=== PATIENT | male | born 1935 | race Hispanic/Latino ===

== ENCOUNTER 2016-08-05 18:31 | Emergency (ER) | payer MEDICARE, OTHER ==
[2016-08-05 18:48] VITALS: BMI 30.5
[2016-08-05 18:55] VITALS: TEMP 98.7
--- NOTE | 2016-08-05 19:02 | ED PDOC ---
Arrival/HPI - General Chief Complaint: ENT Problem Time Seen by Provider: 08/05/16 18:39 Historian: Patient, EMS - History of Present Illness Narrative History of Present Illness (Text): 08/05/16 18:51 80 y/o male, pmh including htn/bph/a.fibb, nkda, biba for nose bleeding started last night. Pt. has been on the coumadin alternate between 3mg and 4mg for the past few months which the PMD noticed it to be subtherapeutic, started 4mg po qd on 07/31/2016. Pt. has been having nasal congestion each morning when he wake up for the past 1 week, no facial pain, no dizziness, been blowing the nose , went to bent down and bear down which he noticed the lt. nostril to have bleeding and stopped. Pt. was sleeping last night and woke up this morning with the dry blood on the pillow. Pt. was having another episode of bleeding, called his pmd Dr. Fletcher which tell him to stop coumadin. Pt. is still having mild oozing from the lt. nostril, limited relief with the pressure. Pt.'s last tetanus under 7 years ago. Past Medical History - Provider Review Nursing Documentation Reviewed: Yes - Infectious Disease Hx of Infectious Diseases: None - Tetanus Immunization Tetanus Immunization: Unknown - Cardiac Hx Cardiac Arrhythmia: Yes (afib) Hx Hypertension: Yes - Psychiatric Hx Depression: No Hx Emotional Abuse: No Hx Physical Abuse: No Hx Substance Use: No - Surgical History Hx Cholecystectomy: Yes Hx Orthopedic Surgery: Yes (fx repair, knee) Other/Comment: lower bacak sebaceous cyst removal 01/03/2016 - Anesthesia Hx Anesthesia: Yes Hx Anesthesia Reactions: No Hx Malignant Hyperthermia: No - Suicidal Assessment Feels Threatened In Home Enviroment: No Family/Social History - Physician Review Nursing Documentation Reviewed: Yes Family/Social History: Unknown Family HX Smoking Status: Never Smoked Hx Alcohol Use: No Hx Substance Use: No Allergies/Home Meds Allergies/Adverse Reactions: Allergies No Known Allergies Allergy (Verified 02/06/16 00:58) Home Medications: Home Meds Medication Instructions Recorded Confirmed Ramipril [Altace] 10 mg PO DAILY 02/20/13 08/05/16 Tamsulosin [Flomax] 0.4 mg PO DAILY 02/20/13 08/05/16 Warfarin [Coumadin] 4 mg PO DAILY 02/20/13 08/05/16 Digoxin [Lanoxin] 0.125 mg PO DAILY 01/24/16 08/05/16 Docusate Sodium [Stool Softener] 100 mg PO BID 01/24/16 08/05/16 Metoprolol Tartrate [Lopressor] 50 mg PO BID 01/24/16 08/05/16 Review of Systems - Review of Systems Constitutional: absent: Fatigue, Fevers Eyes: absent: Vision Changes ENT: Rhinorrhea, Epistaxis. absent: Hearing Changes, Voice Changes, Sore Throat Respiratory: absent: SOB, Cough, Sputum Cardiovascular: absent: Chest Pain, Palpitations Gastrointestinal: absent: Abdominal Pain, Nausea, Vomiting Genitourinary Male: absent: Dysuria, Frequency Musculoskeletal: absent: Arthralgias, Back Pain Skin: absent: Rash, Pruritis, Skin Lesions, Laceration, Abscess, Ulcer, Cellulitis Neurological: absent: Headache, Dizziness, Focal Weakness, Gait Changes, Speech Changes, Facial Droop, Disequilibrium, Seizure, Other Physical Exam Vital Signs Reviewed: Yes Vital Signs Temp Pulse Resp BP Pulse Ox 08/05/16 21:23 80 18 161/116 H 97 08/05/16 18:54 98.7 F 89 20 164/111 H 98 Temperature: Afebrile Blood Pressure: Hypertensive Pulse: Regular Respiratory Rate: Normal Appearance: Positive for: Well-Appearing, Non-Toxic, Comfortable Pain Distress: None Mental Status: Positive for: Alert and Oriented X 3 - Systems Exam Head: Present: Atraumatic, Normocephalic Pupils: Present: PERRL Extroacular Muscles: Present: EOMI Conjunctiva: Present: Normal Ears: Present: NORMAL TM, Normal Canal. No: Erythema Mouth: Present: Moist Mucous Membranes Pharnyx: No: ERYTHEMA, EXUDATE, TONSILS ENLARGED Nose (External): Present: Atraumatic. No: Abrasion, Contusion, Laceration Nose (Internal): Present: Normal Inspection, No Active Bleeding, Epistaxis ( Bilateral nostris examined. Lt. nostril visible bleeding from the posterior region with no anterior bleeding, no septal hematoma. ). No: Clear Mucous, Rhinorrhea, Purulent Mucous, Septal Deviation, Septal Hematoma Neck: Present: Normal Range of Motion Respiratory/Chest: Present: Clear to Auscultation, Good Air Exchange. No: Respiratory Distress, Accessory Muscle Use Cardiovascular: Present: Regular Rate and Rhythm, Normal S1, S2. No: Murmurs Abdomen: Present: Normal Bowel Sounds. No: Tenderness, Distention, Peritoneal Signs Back: Present: Normal Inspection Upper Extremity: Present: Normal Inspection. No: Cyanosis, Edema Lower Extremity: Present: Normal Inspection. No: Edema Neurological: Present: GCS=15, CN II-XII Intact, Speech Normal Skin: Present: Warm, Dry, Normal Color. No: Rashes Psychiatric: Present: Alert, Oriented x 3, Normal Insight, Normal Concentration Medical Decision Making ED Course and Treatment: 08/05/16 19:11 -cbc/cmp/pt/ptt -limited relief with the direct pressure, will use rapid rhino 08/05/16 19:39 -Pt. has elevated BP, stated that he is due for his metolprolol 50mg po this evening, I order metoprolol 50mg po already. 08/05/16 20:00 -Pt. stated that he is due for the flomax 0.4mg po as well, flomax 0.4mg po ordered stat. 08/05/16 22:27 -Platete and INR within normal therapeutic range. -Bleeding stopped and resolved after the rapid rhino. -Rapid rhino inserted by me, pressure adjusted prior to discharge home, augmentin and tramadol ordered for pain. I explained to the patient the rapid rhino need to be removed by 48 hours either in the ER or ENT/PMD. -Discharge home with augmentin, take tramadol for pain as needed, nasal packing need to be removed by 36-48 hours in either ER or PMD/ENT office, follow up with your own pmd and ENT within 2 days, return to the ER for any new or worsening signs or symptoms - Lab Interpretations Lab Results: 08/05/16 19:25 08/05/16 19:25 Lab Results 08/05/16 19:25: WBC 8.8, RBC 4.74, Hgb 15.8, Hct 46.6, MCV 98.3, MCH 33.3, MCHC 33.9, RDW 13.6, Plt Count 202, MPV 10.4, Gran % 71.3 H, Lymph % (Auto) 12.2 L, [place] % (Auto) 13.9 H, Eos % (Auto) 2.3, Baso % (Auto) 0.3, Gran # 6.30, Lymph # 1.1 L, [place] # 1.2 H, Eos # 0.2, Baso # 0.03, PT 23.7 H, INR 2.19 H, APTT 40.5 H , Sodium 139, Potassium 3.9, Chloride 100, Carbon Dioxide 30, Anion Gap 13, BUN 18, Creatinine 1.2, Est GFR ( Amer) > 60, Est GFR (Non-Af Amer) 58, Random Glucose 107, Calcium 9.2, Total Bilirubin 2.1 H, AST 30, ALT 17, Alkaline Phosphatase 90, Total Protein 7.5, Albumin 3.9, Globulin 3.6, Albumin/ Globulin Ratio 1.1 I have reviewed the lab results: Yes Interpretation: No clinic. lab abnormalty - Medication Orders Current Medication Orders: Discontinued Medications Amoxicillin/Clavulanate Potassium (Augmentin 875 Mg-125 Mg Tab) 1 tab PO STAT STA PRN Reason: Protocol Stop: 08/05/16 19:55 Last Admin: 08/05/16 21:19 Dose: 1 TAB Clonidine HCl (Catapres) 0.1 mg PO STAT STA Stop: 08/05/16 21:13 Metoprolol Tartrate (Lopressor) 50 mg PO STAT STA Stop: 08/05/16 19:40 Tamsulosin HCl (Flomax) 0.4 mg PO STAT STA Stop: 08/05/16 20:00 Last Admin: 08/05/16 21:20 Dose: 0.4 MG Tramadol/Acetaminophen (Ultracet 37.5/325 Mg) 1 tab PO STAT STA Stop: 08/05/16 19:56 Last Admin: 08/05/16 21:20 Dose: 1 TAB - PA / HOT DOG VENDOR / Resident Statement /DO has reviewed & agrees with the documentation as recorded. Disposition/Present on Arrival - Present on Arrival Any Indicators Present on Arrival: No History of DVT/PE: No History of Uncontrolled Diabetes: No Urinary Catheter: No History of Decub. Ulcer: No History Surgical Site Infection Following: None - Disposition Have Diagnosis and Disposition been Completed?: Yes Diagnosis: Acute posterior epistaxis Disposition: HOME/ ROUTINE Disposition Time: 20:27 Patient Plan: Discharge Patient Problems: Current Active Problems Problem Status Diagnosed Acute posterior epistaxis Acute Condition: IMPROVED Additional Instructions: Discharge home with augmentin, take tramadol for pain as needed, nasal packing need to be removed by 36-48 hours in either ER or PMD/ENT office, follow up with your own pmd and ENT within 2 days, return to the ER for any new or worsening signs or symptoms. Prescriptions: Amoxicillin/Clavulanate [Augmentin 875 MG-125 MG] 1 tab PO BID #20 tab Tramadol HCl/Acetaminophen [Ultracet Tablet] 1 each PO QID #8 tablet Referrals: Roger Fletcher MD [Primary Care Provider] - Follow up with primary Fritz Rahman DO [Doctor [facility]] - Follow up with primary Forms: WORK NOTE
[2016-08-05 19:36] LABS: ADD MANUAL DIFF? NO
[2016-08-05 19:42] LABS: BASO # 0.03 K/mm3 (0.0-2.0); BASO % 0.3 % (0.0-3.0); EOS # 0.2 (0.0-0.7); EOS % 2.3 % (1.5-5.0); GRAN % 71.3 % (50.0-68.0); HEMATOCRIT 46.6 % (42.0-52.0); LYMPH # 1.1 (1.2-3.4); LYMPH % 12.2 % (22.0-35.0); MEAN CELL VOLUME 98.3 fL (80.0-105.0); MEAN CORPUSCULAR HEMOGLOBIN 33.3 pg (25.0-35.0); MEAN CORPUSCULAR HGB CONC 33.9 g/dl (31.0-37.0); MEAN PLATELET VOLUME 10.4 fl (7.0-11.0); MONO # 1.2 (0.1-0.6); MONO % 13.9 % (1.0-6.0); PLATELET COUNT 202 10^3/uL (120.0-450.0); RED CELL DISTRIBUTION WIDTH 13.6 % (11.5-14.5); WHITE BLOOD COUNT 8.8 10^3/ul (4.5-11.0)
[2016-08-05 19:53] LABS: INR 2.19 (0.93-1.08); PARTIAL THROMBOPLASTIN TIME 40.5 Seconds (23.7-30.8)
[2016-08-05] MEDS ORDERED: Amoxicillin-Clav 875-125 mg Tab PO STA (19:54)
[2016-08-05] MEDS ORDERED: TraMADol/Apap 37.5/325 mg Tab PO STA (19:55)
[2016-08-05 19:56] LABS: ALB/GLOB RATIO 1.1 (1.1-1.8); ALKALINE PHOSPHATASE 90 U/L (38-133); ALT/SGPT 17 U/L (7-56); AST/SGOT 30 U/L (15-59); BILIRUBIN,TOTAL 2.1 mg/dL (0.2-1.3); BLOOD UREA NITROGEN 18 mg/dL (7-21); CALCIUM 9.2 mg/dL (8.4-10.5); CARBON DIOXIDE 30 mmol/L (21-33); CHLORIDE 100 mmol/L (98-107); GFR AFRICAN-AMERICAN > 60; GLUCOSE,RANDOM 107 mg/dL (70-110); POTASSIUM 3.9 mmol/L (3.6-5.0); SODIUM 139 mmol/L (132-148); TOTAL PROTEIN 7.5 g/dL (5.8-8.3)
[2016-08-05 22:29] VITALS: BP 156/79; PULSE 87; RESP 16; O2SAT 98
== END 2016-08-05 22:35 | disposition home or self-care (01) ==
LOC: ED 18:31
DX: R04.0 Epistaxis (principal); I10 Essential (primary) hypertension; I48.91 Unspecified atrial fibrillation; N40.0 Benign prostatic hyperplasia without lower urinary tract symptoms; Z79.01 Long term (current) use of anticoagulants

== ENCOUNTER 2016-08-07 12:42 | Emergency (ER) | payer MEDICARE, OTHER ==
[2016-08-07 14:06] VITALS: BMI 29.8
[2016-08-07 14:09] VITALS: BP 142/97; PULSE 88; RESP 16; TEMP 97.3; O2SAT 97
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
== END 2016-08-07 15:21 | disposition home or self-care (01) ==
LOC: ED 12:42
DX: R04.0 Epistaxis (principal); I48.91 Unspecified atrial fibrillation; Z79.01 Long term (current) use of anticoagulants; I10 Essential (primary) hypertension